=== PATIENT | female | born 1970 | race Caucasian/White ===

== ENCOUNTER 2019-02-23 21:27 | Inpatient (IN) | payer BC ==
[~2019-02-23] VITALS: Ht 165.1 cm; Wt 58.5 kg
[2019-02-23] MEDS ORDERED: SODIUM CHLORIDE 0.9% 1,000 ML IV ONE (23:22)
[2019-02-23] MEDS ORDERED: ONDANSETRON HCL 4MG/2ML INJ IV STA (23:22)
[2019-02-23] MEDS ORDERED: MORPHINE SULFATE 4 MG/ML CPJ (NOT FOR IM USE) IV STA (23:22)
[2019-02-23 23:45] LABS: CLARITY URINE CLEAR (CLEAR); COLOR URINE YELLOW (YELLOW); KETONES URINE NEGATIVE (NEGATIVE); LEUKOCYTE ESTERASE URINE 1+ (NEGATIVE); NITRITE URINE NEGATIVE (NEGATIVE); OCCULT BLOOD URINE 1+ (NEGATIVE); PH URINE 5.5 (4.5-8.0); PROTEIN URINE NEGATIVE (NEGATIVE); SPECIFIC GRAVITY URINE 1.013 (1.005-1.030); UROBILINOGEN URINE 0.2 E.U./dL (0.2-1.0)
[2019-02-23 23:52] LABS: BASOPHILS % 0.1 % (0.0-2.0); EOSINOPHILS % 0.5 % (0.0-5.0); HEMATOCRIT. 34.7 % (36.0-48.0); HEMOGLOBIN. 11.8 g/dL (12.0-16.0); LYMPHOCYTES % 12.6 % (20.0-50.0); MEAN CORPUSCULAR HEMOGLOBIN 28.8 pg (28.0-32.0); MEAN CORPUSCULAR VOLUME 85.1 fL (81.0-99.0); MEAN PLATELET VOLUME 7.6 fl (7.4-10.4); MONOCYTES % 2.4 % (2.0-8.0); NEUTROPHILS % 84.4 % (40.0-76.0); PLATELET 280 x1000/uL (130-400); RED BLOOD CELL COUNT 4.08 mill/uL (4.2-5.4); RED CELL DISTRIBUTION WIDTH 12.6 % (11.6-14.6)
[2019-02-23 23:55] LABS: CHLORIDE 106 mEq/L (98-107)
[2019-02-24] MEDS ORDERED: CLONIDINE 0.1MG TABLET PO PRN (03:45)
[2019-02-24] MEDS ORDERED: DOCUSATE SODIUM 100MG CAPSULE PO PRN (03:45)
[2019-02-24] MEDS ORDERED: MORPHINE SULFATE 2 MG/ML CPJ (NOT FOR IM USE) IV PRN (03:45)
[2019-02-24] MEDS ORDERED: MAGNESIUM/ALUMINUM HYDROXIDE/SIMETHICONE 30ML UDC PO PRN (03:45)
[2019-02-24] MEDS ORDERED: HYDROCODONE/ACETAMINOPHEN 5/325MG TABLET PO PRN (03:45)
[2019-02-24] MEDS ORDERED: LEVOFLOXACIN 500MG PREMIX 100 ML IV SCH (03:45)
[2019-02-24] MEDS ORDERED: IOHEXOL-350 100 ML BOTTLE ONE (04:01)
[2019-02-24 05:00] VITALS: BP 118/65
[2019-02-24] MEDS ORDERED: HYDR-4001 PO (05:00)
[2019-02-24] MEDS ORDERED: IBUP-2030 PO (05:00)
[2019-02-24] MEDS ORDERED: TOCI400V IV (05:00)
[2019-02-24] MEDS ORDERED: PRED5TAB48 PO (05:00)
[2019-02-24 07:43] LABS: CREATINE KINASE 42 IU/L (26-192)
[2019-02-24 07:45] LABS: CREATINE KINASE MB FRACTION < 1.0 ng/mL (0.5-3.6)
[2019-02-24 08:00] VITALS: BP 102/58
[2019-02-24] MEDS: AMLODIPINE 10MG TABLET PO SCH (08:57)
[2019-02-24] MEDS ORDERED: ASPIRIN 81MG EC TABLET PO SCH (09:00)
[2019-02-24] MEDS: LEVOFLOXACIN 500MG PREMIX 100 ML IV SCH (09:06)
[2019-02-24] MEDS: ONDANSETRON HCL 4MG/2ML INJ IV PRN ×2 (09:06→21:42)
[2019-02-24] MEDS: ASPIRIN 81MG TABLET PO SCH (10:20)
[2019-02-24] MEDS: ENOXAPARIN 40MG/0.4ML SYR SUBCUT SCH (10:22)
[2019-02-24 12:00] VITALS: BP 100/62
[2019-02-24] MEDS ORDERED: PNEUMOCOCCAL 23-VAL P-SAC VAC 0.5 ML IM ONE (12:00)
[2019-02-24] MEDS: ACETAMINOPHEN 325MG TABLET PO PRN (13:18)
[2019-02-24 13:43] LABS: T4 FREE 1.34 ng/dL (0.76-1.46)
[2019-02-24 16:00] VITALS: BP 91/48
[2019-02-24 16:14] LABS: CREATINE KINASE 46 IU/L (26-192)
[2019-02-24 16:15] LABS: CREATINE KINASE MB FRACTION < 1.0 ng/mL (0.5-3.6)
[2019-02-24 20:00] VITALS: BP 101/54
[2019-02-25] VITALS: BP_SYST 100; BP_SYST 134; BP_DIAS 49; BP_DIAS 51
[2019-02-25] MEDS: ACETAMINOPHEN 325MG TABLET PO PRN ×2 (00:01→08:33)
[2019-02-25 04:00] VITALS: BP 127/63
[2019-02-25 06:49] LABS: BASOPHILS % 0.2 % (0.0-2.0); EOSINOPHILS % 2.7 % (0.0-5.0); HEMATOCRIT. 31.3 % (36.0-48.0); HEMOGLOBIN. 10.6 g/dL (12.0-16.0); MEAN CORPUSCULAR HEMOGLOBIN 28.8 pg (28.0-32.0); MEAN CORPUSCULAR VOLUME 84.9 fL (81.0-99.0); MEAN PLATELET VOLUME 7.9 fl (7.4-10.4); MONOCYTES % 6.9 % (2.0-8.0); NEUTROPHILS % 62.2 % (40.0-76.0); PLATELET 245 x1000/uL (130-400); RED BLOOD CELL COUNT 3.69 mill/uL (4.2-5.4); RED CELL DISTRIBUTION WIDTH 12.8 % (11.6-14.6)
[2019-02-25 07:17] LABS: CHLORIDE 107 mEq/L (98-107)
[2019-02-25 07:30] LABS: LDL CHOLESTEROL 52 mg/dL (5-100)
[2019-02-25 07:31] LABS: HDL CHOLESTEROL 27 mg/dL (40-59)
[2019-02-25 08:26] VITALS: BP 90/46
[2019-02-25] MEDS: ASPIRIN 81MG TABLET PO SCH (08:33)
[2019-02-25] MEDS: LEVOFLOXACIN 500MG PREMIX 100 ML IV SCH (08:34)
[2019-02-25] MEDS: ENOXAPARIN 40MG/0.4ML SYR SUBCUT SCH (08:34)
[2019-02-25] MEDS: AMLODIPINE 10MG TABLET PO SCH (08:35)
[2019-02-25] MEDS ORDERED: POTASSIUM CHLORIDE 20MEQ TABLET SR PO SCH (09:00)
[2019-02-25 12:29] VITALS: BP 103/55
[2019-02-25 12:31] VITALS: BP 95/53
== END 2019-02-25 13:35 | disposition home or self-care (01) | DRG 313 ==
LOC: ER 21:27 → EDBD 21:27 → 8WST 02-24 02:55 → EDBEDREQTM 02-24 02:58 → EDBEDREQ 02-24 02:58 → ENRESERV 02-24 03:30
PROVIDERS: ADMIT Hospitalist; ATTEND Hospitalist
DX: R07.89 Other chest pain (principal); M06.9 Rheumatoid arthritis, unspecified; D64.9 Anemia, unspecified; Z79.899 Other long term (current) drug therapy
CPT/HCPCS: 36415; 71045; 71275; 80061; 81003; 82550; 82553; 83036; 83605; 83880; 84439; 84443; 84484; 85379; 90732; 93005; 93306; 93970; 99285; J1650; J1956; J2270; J2405; J7030; J7040; Q9967

== ENCOUNTER 2019-09-07 12:04 | Emergency (ER) | payer BC ==
[~2019-09-07] VITALS: Ht 165.1 cm; Wt 54.0 kg
[~2019-09-07 12:04] MED LIST: HYDR-4001 PO; IBUP-2030 PO; PRED5TAB48 PO; TOCI400V IV
[2019-09-07 12:52] VITALS: BP 107/77
[2019-09-07] MEDS ORDERED: KETOROLAC 60MG/2ML VIAL IM ONE (13:00)
== END 2019-09-07 13:04 | disposition home or self-care (01) ==
LOC: ER 12:04
DX: M54.42 Lumbago with sciatica, left side (principal)
CPT/HCPCS: 96372; 99283; J1885

== ENCOUNTER 2019-09-13 15:39 | Emergency (ER) | payer BC ==
[~2019-09-13] VITALS: Ht 165.1 cm; Wt 53.9 kg
[2019-09-13] MEDS ORDERED: KETOROLAC 60MG/2ML VIAL IM ONE (17:45)
[2019-09-13 18:10] VITALS: BP 129/96
== END 2019-09-13 18:11 | disposition home or self-care (01) ==
LOC: ER 15:39
DX: B02.9 Zoster without complications (principal); B02.29 Other postherpetic nervous system involvement; M54.30 Sciatica, unspecified side
CPT/HCPCS: 96372; 99283; J1885